=== PATIENT | female | born 1985 | race Caucasian/White ===

== ENCOUNTER 2021-02-27 15:16 | Outpatient (CLI) | payer OTHER, SELFPAY ==
[2021-02-27 16:05] LABS: Beta HCG Quantitative < 2.39 mIU/ML
== END 2021-02-27 15:17 | disposition home or self-care (01) ==
LOC: ANHLAB 15:19
PROVIDERS: PCP Nurse Practitioner; Visit Provider Nurse Practitioner
DX: N92.6 Irregular menstruation, unspecified (principal)
CPT/HCPCS: 36415; 84702

== ENCOUNTER → 2021-03-03 12:59 | Outpatient (CLI) | payer OTHER, SELFPAY ==
--- NOTE | ~2021-03-03 | US_ITS ---
EXAMINATION: US pelvic complete w TV DATE: 03/03/2021 13:26 INDICATION: Pelvic pain Comparison:No prior studies for comparison. TECHNIQUE: Multiple transabdominal and endovaginal sonographic images of the pelvis performed. FINDINGS: The uterus measures 9.3 x 3.2 x 5 cm. The endometrial complex measures 8 mm. The right ovary measures 2.3 x 1.6 x 2.6 cm and the left ovary measures 2.7 x 2.2 x 2.3 cm. There ar e small follicles in each ovary. Normal doppler signal in both ovaries. There is no free fluid in the pelvis. There are no abnormal masses seen on either side. IMPRESSION: 1. Unremarkable pelvic ultrasound. Reviewed, dictated and finalized at location A. [facility]
== END ==
PROVIDERS: PCP Nurse Practitioner; Visit Provider Nurse Practitioner
DX: R10.2 Pelvic and perineal pain (principal)
CPT/HCPCS: 76830; 76856

== ENCOUNTER 2022-05-14 09:08 | Outpatient (CLI) | payer OTHER, SELFPAY ==
[2022-05-14 10:05] LABS: Basophils Percent Auto 0.3 % (0.2-1.2); Eosinophils Absolute Auto 0.2 K/mm3 (0-0.3); Eosinophils Percent Auto 2.8 % (0-4.4); Hematocrit 41.2 % (37.0-47.0); Hemoglobin 13.5 g/dL (12.0-15.0); Immature Granulocyte Absolute 0.01 K/mm3 (0.00-0.031); Immature Granulocyte Percent A 0.2 % (0-0.5); Lymphocytes Absolute Auto 1.72 K/mm3 (0.9-3.2); Lymphocytes Percent Auto 29.6 % (18.3-44.2); Mean Corpuscular HGB Conc 32.8 g/dl (32-36); Mean Corpuscular Volume 94.5 fl (80-100); Mean Platelet Volume 9.2 fl (7.4-10.4); Monocytes Absolute Auto 0.4 K/mm3 (0.1-0.6); Monocytes Percent Auto 6.2 % (2.6-8.5); Neutrophils Absolute Auto 3.5 K/mm3 (1.3-6.7); Neutrophils Percent Auto 60.9 % (45.5-73.1); Platelet Count Result 248 k/mm3 (150-375); Red Blood Count 4.36 M/mm3 (4.2-5.4); Red Cell Distribution Width 13.3 % (11.5-14.5); White Blood Count 5.8 K/mm3 (4.5-10.0)
[2022-05-14 10:13] LABS: Hemoglobin A1C 4.9 % (<5.7)
[2022-05-14 10:15] LABS: Alanine Aminotransferase 30 U/L (6-35); Albumin Level 4.6 g/dL (3.5-5.1); Alkaline Phosphatase 50 U/L (38-126); Anion Gap 7 mmol/L (8-16); Aspartate Amino Transferase 31 U/L (14-36); Bilirubin,Total 0.6 mg/dL (0.2-1.3); Blood Urea Nitrogen 15 mg/dL (7-17); Calcium 8.8 mg/dL (8.4-10.2); Carbon Dioxide 23 mmol/L (22-30); Chloride 108 mmol/L (98-107); Cholesterol 188 mg/dL (0-200); Estimated Glomerular Filt Rate > 60; Glucose 90 mg/dL (65-110); HDL Direct 61 mg/dL; Potassium 4.3 mmol/L (3.4-5.0); Sodium 138 mmol/L (137-145); Triglycerides 91 mg/dL (<150)
[2022-05-14 10:25] LABS: LDL Cholesterol Direct 89 mg/dL
[2022-05-14 10:34] LABS: Vitamin D 25 Hydroxy 30.2 ng/mL
== END 2022-05-14 09:09 | disposition home or self-care (01) ==
PROVIDERS: PCP Nurse Practitioner; Visit Provider Nurse Practitioner Obstetrics & Gynecology
DX: Z00.00 Encounter for general adult medical examination without abnormal findings (principal); Z11.51 Encounter for screening for human papillomavirus (HPV); Z12.4 Encounter for screening for malignant neoplasm of cervix
CPT/HCPCS: 36415; 80053; 80061; 82306; 82607; 83036; 84443; 85025

== ENCOUNTER → 2022-07-29 08:40 | Outpatient (CLI) | payer OTHER, SELFPAY ==
--- NOTE | ~2022-07-29 | US_ITS ---
US abdomen limited 07/29/2022 09:27 Indication: Epigastric and left upper abdominal pain Procedure: High-resolution Limited ultrasound of the left upper abdomen Comparison: No prior studies for comparison. Findings: Left renal echotexture is normal without hydronephrosis, contour deforming mass or renal st one. Left kidney measures 11.7 cm. Spleen is normal with homogeneous echotexture measuring 10.4 cm in length. No suspicious fluid collections. Impression: 1: Normal ultrasound of the left upper abdomen. Reviewed, dictated and finalized at location B. Impression: 1: Normal ultrasound of the left upper abdomen.
== END ==
PROVIDERS: PCP Nurse Practitioner; Visit Provider Nurse Practitioner
DX: R10.13 Epigastric pain (principal)
CPT/HCPCS: 76705

== ENCOUNTER → 2022-09-03 10:32 | Outpatient (CLI) | payer OTHER, SELFPAY ==
--- NOTE | ~2022-09-03 | US_ITS ---
EXAMINATION: US right upper quadrant DATE: 09/03/2022 10:50 INDICATION: Epigastric pain TECHNIQUE: Multiple grayscale and Doppler ultrasound images of the right upper quadrant were obtained . COMPARISON: Limited ultrasound of the abdomen 07/29/2022. FINDINGS: The visualized portions of the pancreas are normal. The liver is normal with normal echogen icity and echotexture. No surface nodularity. Normal hepatopetal flow in the main portal vein. The ga llbladder is normal with no abnormal wall thickening, pericholecystic fluid or stones. The common aris e duct measures 5 mm. There was no sonographic Brownlee sign. The visualized portions of the IVC and ao rta were normal. The right kidney measures 11.7 cm. IMPRESSION: Normal right upper quadrant ultrasound findings. Reviewed, dictated and finalized at location K.
== END ==
DX: R10.13 Epigastric pain (principal); R10.11 Right upper quadrant pain
CPT/HCPCS: 76705

== ENCOUNTER 2022-12-09 17:16 | Outpatient (CLI) | payer OTHER, SELFPAY ==
--- NOTE | ~2022-12-09 | CT_ITS ---
EXAMINATION: CT brain wo con DATE: 12/09/2022 17:39 INDICATION: Headache associated with sexual activity TECHNIQUE: Computed tomography (CT) of the head was performed without intravenous contrast. The mA wa s adjusted according to patient size. Iterative reconstruction technique was employed. Exam dose: 60 5.33 mGy-cm total exam DLP. COMPARISON: None FINDINGS: No intracranial mass lesion or hemorrhage or cerebrovascular accident, midline shift or mas s effect. Normal ventricular size. Normal fisher-white matter differentiation. No subdural or epidural hematoma. No fracture or bone destruction of the cranial vault. The mastoid air cells and included paranasal sinuses are normal. IMPRESSION: Negative Reviewed, dictated and finalized at Location A. Reviewed, dictated and finalized at location A. IMPRESSION: Negative
== END 2022-12-09 17:17 | disposition home or self-care (01) ==
LOC: ANHIMG 17:18
PROVIDERS: Visit Provider Nurse Practitioner
DX: G44.82 Headache associated with sexual activity (principal)
CPT/HCPCS: 70450

== ENCOUNTER 2022-12-14 12:09 | Outpatient (CLI) | payer OTHER, SELFPAY ==
--- NOTE | ~2022-12-14 | CT_ITS ---
EXAMINATION: CTA brain carotid DATE: 12/14/2022 12:45 INDICATION: Bilateral carotid dissection. TECHNIQUE: Computed tomographic angiography (CTA) of the head was performed without and with 100 mL O mnipaque-350 intravenous contrast. CTA of the neck was performed with intravenous contrast. Automated exposure control and iterative reconstruction technique were employed. The dose-length product was 1 467.37 mGy-cm. Maximum intensity projection and volume rendered 3D-reconstructions were created by jose lee technologist on a separate workstation. COMPARISON: Head CT 12/09/2022 FINDINGS: HEAD CTA: There is no intracranial hemorrhage, acute infarction, or abnormal intracranial mass lesion . The ventricles are normal in size. The paranasal sinuses are clear. The mastoid air cells are wanda l. The orbits are normal. Left vertebral artery is dominant. There is no significant stenosis of basi lar artery or the posterior cerebral arteries. There is no significant stenosis of the intracranial i nternal carotid arteries or anterior or middle cerebral arteries. Anterior clinic ear is normal. The posterior communicating arteries are normal. There is no aneurysm. NECK CTA: There are no pathologically enlarged lymph nodes. There is no significant stenosis of the v ertebral arteries. There is no visible plaque in the proximal internal carotid arteries. There is 0% stenosis of the proximal right internal carotid artery relative to normal distal artery lumen diamete r (NASCET criteria). There is 0% stenosis of the proximal left internal carotid artery relative to no rmal distal artery lumen diameter. There is mild cervical spondylosis. IMPRESSION: 1. Normal brain. No aneurysm or significant intracranial arterial stenosis. 2. 0% stenosis of the proximal internal carotid arteries relative to normal distal artery lumen diame ters (NASCET criteria). Reviewed, dictated and finalized at location A. IMPRESSION: 1. Normal brain. No aneurysm or significant intracranial arterial stenosis. 2. 0% stenosis of the proximal internal carotid arteries relative to normal dis mila artery lumen diameters (NASCET criteria).
== END 2022-12-14 12:10 | disposition home or self-care (01) ==
PROVIDERS: Visit Provider Psychiatry & Neurology Neurology
DX: I77.71 Dissection of carotid artery (principal); I67.1 Cerebral aneurysm, nonruptured
CPT/HCPCS: 70496; 70498; Q9967

== ENCOUNTER 2023-02-06 10:57 | Outpatient (CLI) | payer OTHER, SELFPAY ==
[2023-02-06 11:38] LABS: Hemoglobin A1C 4.7 % (<5.7)
[2023-02-10 07:02] LABS: FSH 8.9 mIU/mL (***); Insulin Level Total 16.4 uIU/mL (<=18.4); Prolactin 4.3 ng/mL (***)
[2023-02-10 19:41] LABS: Estriol <0.10 ng/mL
[2023-02-11 06:47] LABS: LH 2.8 mIU/mL (***); Progesterone 0.3 ng/mL (***)
[2023-02-17 16:10] LABS: Estradiol, Ultrasensitive 35
== END 2023-02-06 10:58 | disposition home or self-care (01) ==
LOC: ANHLAB 11:01
PROVIDERS: Visit Provider Nurse Practitioner Obstetrics & Gynecology
DX: N92.6 Irregular menstruation, unspecified (principal); G47.00 Insomnia, unspecified
CPT/HCPCS: 36415; 82670; 82677; 83001; 83002; 83036; 83525; 84144; 84146; 84443

== ENCOUNTER → 2023-03-08 12:31 | Outpatient (CLI) | payer OTHER, SELFPAY ==
--- NOTE | ~2023-03-08 | MR_ITS ---
MRI of the brain Clinical History: Headache Technique: Axial and sagittal T1-weighted images were acquired. These were followed by axial T2-weigh karissa, diffusion weighted, gradient, and FLAIR images. Following intravenous administration of 20 cc Mu ltiHance gadolinium, T1-weighted fat-sat imaging was performed in the axial and coronal planes. Findings: There is no abnormal signal in the brain parenchyma. No acute infarct, intracranial hemorrh age or mass lesion. Ventricles and subarachnoid spaces are unremarkable. Orbits are unremarkable. Paranasal sinuses and m astoid air cells are clear. Major intracranial flow voids are intact. Sagittal midline structures are intact. No abnormal postcontrast enhancement identified. IMPRESSION: Unremarkable exam. Reviewed, dictated and finalized at location M. ING [employer]OR IMPRESSION: Unremarkable exam.
--- NOTE | ~2023-03-08 | MR_ITS ---
MRI of the cervical spine Clinical History: Myelopathy Technique: Axial T2-weighted and gradient images, and sagittal T1-weighted, T2-weighted, and STIR ale ges were acquired. Following intravenous administration of 20 cc MultiHance gadolinium, T1-weighted f at-sat imaging was performed in the axial and sagittal planes. Findings: There is straightening of the normal cervical lordosis. No fracture or sublocation seen. No bone marrow signal abnormality seen. At C2-C3, there is no disc bulge or herniation. No central canal stenosis, cord compression, or neura l foraminal narrowing. At C3-C4, there is no significant disc bulge or herniation. No spinal canal stenosis, cord compressio n, or neural foraminal narrowing. At C4-C5, there is minimal disc bulge. No spinal canal stenosis, cord compression, or neural foramina l narrowing. At C5-C6, there is disc osteophyte complex, most prominent at the left paracentral region, with mild flattening of the ventral cord on the left side. There is probable minimal left neural foraminal narr owing. Right neural foramen preserved. At C6-C7, there is no disc bulge or herniation. No spinal canal stenosis, cord compression, or neural foraminal narrowing. No abnormal signal seen in the spinal cord. Paravertebral soft tissues are unremarkable. Impression: Left paracentral disc osteophyte complex at C5-C6, with mild flattening the ventral cord on the left side, and probable minimal left neural foraminal narrowing. Reviewed, dictated and finalized at [facility]. 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
== END ==
PROVIDERS: PCP Nurse Practitioner; Visit Provider Psychiatry & Neurology Neurology
DX: M25.78 Osteophyte, vertebrae (principal); G95.29 Other cord compression
CPT/HCPCS: 70553; 72156; A9577